=== PATIENT | female | born 1990 | race Caucasian/White ===

== ENCOUNTER → 2017-01-13 | Outpatient (REF) | LOC: M LAB 10:23 | PROVIDERS: ATTEND Nurse Practitioner Adult Health | DX: Z02.89 Encounter for other administrative examinations (principal) ==

== ENCOUNTER → 2017-04-10 | Outpatient (CLI) | payer OTHER ==
[~2017-04-10] MED LIST: CYCL10TA PO; DOXY-278 PO; ISOVUE-370 76% 100ML VIAL (Q9967) As Ordered ONE; MAXA10TA14 PO; PROP60TA14 PO
--- NOTE | 2017-04-10 13:20 | REP ---
HYSTEROSALPINGOGRAM: Patient's cervix was catheterized by the referring clinician. Contrast was injected. I provided fluoroscopy and obtained spot radiographs. Uterine cavity demonstrates no definite filling defect. There is free passage of contrast through both fallopian tubes which do not appear to be dilated. There is free intraperitoneal spillage bilaterally indicating bilateral fallopian tube patency. IMPRESSION: Bilateral fallopian tube patency. 12 seconds fluoroscopy time utilized. Signed by Max Christy MD 04/10/2017 01:32 P
== END ==
LOC: M RADPRO 11:29
PROVIDERS: ATTEND Student in an Organized Health Care Education/Training Program
DX: N97.9 Female infertility, unspecified (principal)
CPT/HCPCS: 58340; 74740; Q9967

== ENCOUNTER 2017-04-11 02:00 | Emergency (ER) | payer OTHER ==
[~2017-04-11] VITALS: Ht 160 cm; Wt 77.2 kg
[2017-04-11] MEDS ORDERED: MAXA10TA14 PO (02:13)
[2017-04-11] MEDS ORDERED: PROP60TA14 PO (02:13)
[2017-04-11] MEDS ORDERED: NS 1,000 ML IV ONE (04:15)
[2017-04-11] MEDS ORDERED: KETOROLAC 30 MG/ML VIAL (J1885) IV ONE (04:15)
[2017-04-11] MEDS ORDERED: MORPHINE 10 MG/ML 1ML VIAL IV ONE (04:15)
--- NOTE | 2017-04-11 04:40 | REPUSA ---
CLINICAL HISTORY: Abdominal pain. TECHNIQUE: Multiple axial, sagittal and coronal CT images were obtained through the abdomen and pelvi s without administration of oral or IV contrast material. COMMENTS: The liver is of uniform attenuation without mass or defect. There is no intra or extrahepatic biliary ductal dilatation. The spleen is normal. The gallbladder is within normal limits. The pancreas is of normal contour and attenuation characteristics. There is no evidence of adrenal mass. The kidneys are normal in size, shape and configuration. No renal or ureteral calculi are identified. There is no hydroureter or hydronephrosis. There is no evidence for appendicitis. There is no bowel wall thickening. No evidence for small or la rge bowel obstruction. There is no evidence of abdominal ascites or lymphadenopathy. Mild large bowel fecal stasis. There is no evidence of intrinsic or extrinsic bladder mass. Mildly thickened bladder. There is no pe lvic ascites or lymphadenopathy. Contrast in the vagina. Images of the lung bases show no evidence of pleural or parenchymal mass. There are no pleural effusi ons. The bony structures are free of lytic or blastic lesions. IMPRESSION: Contrast in the vagina. Mildly thickened bladder. Underdistention, spasm versus mild cystitis. Thank you for your kind referral of this patient.
[2017-04-11 06:29] VITALS: BP 129/78
[2017-04-12] MEDS ORDERED: CYCL10TA PO (03:21)
[2017-04-12] MEDS ORDERED: DOXY-278 PO (03:21)
== END 2017-04-11 06:31 | disposition home or self-care (01) ==
LOC: M ED 02:00
DX: G89.18 Other acute postprocedural pain (principal); Z79.899 Other long term (current) drug therapy; Z88.0 Allergy status to penicillin
CPT/HCPCS: 36415; 74176; 81001; 87086; 96361; 96374; 96375; 99283; J1885

== ENCOUNTER 2017-04-12 03:06 | Emergency (ER) | payer OTHER ==
[~2017-04-12 03:06] MED LIST changes: -CYCL10TA PO; -DOXY-278 PO; -ISOVUE-370 76% 100ML VIAL (Q9967) As Ordered ONE
[2017-04-12] MEDS ORDERED: DOXY-278 PO (03:21)
[2017-04-12] MEDS ORDERED: CYCL10TA PO (03:21)
[2017-04-12] MEDS ORDERED: KETOROLAC 30 MG/ML VIAL (J1885) IV ONE (03:45)
[2017-04-12] MEDS ORDERED: NS 1,000 ML IV ONE (03:45)
[2017-04-12 04:23] LABS: BASO # 0.1 K/mm3 (0.0-0.2); BASO % 0.7 % (0.0-1.0); EOS # 0.3 K/mm3 (0.0-0.50); EOS % 3.8 % (0.0-3.0); LARGE UNSTAINED CELL # 0.1 K/mm3 (0.0-0.4); LARGE UNSTAINED CELL % 1.5 % (0.0-4.0); LYMPH # 3.7 K/mm3 (1.5-6.5); MEAN CORPUSCULAR HEMOGLOBIN 30.1 pg (27.0-33.0); MEAN CORPUSCULAR HGB CONC 34.4 g/dl (32.0-36.5); MEAN CORPUSCULAR VOLUME 87.6 fl (80.0-96.0); MONO # 0.5 K/mm3 (0.0-0.8); MONO % 5.3 % (0.0-5.0); NEUTROPHILS # 4.5 K/mm3 (1.8-7.7); NEUTROPHILS % 49.8 % (36.0-66.0); PLATELET COUNT, AUTOMATED 473 k/mm3 (150-450); RED CELL DISTRIBUTION WIDTH 12.5 % (11.5-14.5)
[2017-04-12] MEDS ORDERED: METAL LOCK LOOP XX ONE (04:23)
[2017-04-12 04:42] LABS: ALBUMIN 3.8 GM/DL (3.2-5.2); ALBUMIN/GLOBULIN RATIO 1.09 (1.00-1.93); ALKALINE PHOSPHATASE 84 U/L (45-117); ALT/SGPT 37 U/L (12-78); AMYLASE 50 U/L (25-115); ANION GAP 7 MEQ/L (8-16); AST/SGOT 25 U/L (15-37); BILIRUBIN,DIRECT < 0.1 MG/DL (0.0-0.2); BILIRUBIN,TOTAL 0.3 MG/DL (0.2-1.0); BLOOD UREA NITROGEN 11 MG/DL (7-18); CALCIUM LEVEL 8.1 MG/DL (8.5-10.1); CARBON DIOXIDE LEVEL 26 MEQ/L (21-32); CHLORIDE LEVEL 111 MEQ/L (98-107); CREATININE FOR GFR 0.55 MG/DL (0.55-1.02); GLOMERULAR FILTRATION RATE > 60.0 (>60); GLUCOSE, FASTING 99 MG/DL (70-105); POTASSIUM SERUM 4.3 MEQ/L (3.5-5.1); SODIUM LEVEL 144 MEQ/L (136-145); TOTAL PROTEIN 7.3 GM/DL (6.4-8.2)
[2017-04-12] MEDS ORDERED: ISOVUE-370 76% 100ML VIAL (Q9967) As Ordered ONE (04:58)
--- NOTE | 2017-04-12 06:00 | REPUSA ---
CLINICAL HISTORY: Abdominal pain. TECHNIQUE: Multiple axial, sagittal and coronal CT images were obtained through the abdomen and pelvi s after administration of intravenous contrast material. COMMENTS: Comparison to the prior exam on 04/11/2017. Decreased amount of contrast in the vagina. Mildly thickened bladder. The liver is of uniform attenuation without mass or defect. There is no intra or extrahepatic biliary ductal dilatation. The spleen is normal. The gallbladder is within normal limits. The pancreas is of normal contour and attenuation characteristics. There is no evidence of adrenal mass. Both kidneys demonstrate prompt and equal nephrograms. The kidneys are normal in size, shape and conf iguration. There is no evidence of renal or ureteral mass. No renal or ureteral calculi are identifie d. There is no hydroureter or hydronephrosis. No evidence for appendicitis. There is no bowel wall thickening. No evidence for small or large elton l obstruction. There is no evidence of abdominal ascites or lymphadenopathy. There is no evidence of intrinsic or extrinsic bladder mass. There is no pelvic ascites or lymphadeno rimma. Images of the lung bases show no evidence of pleural or parenchymal mass. There are no pleural effusi ons. The bony structures are free of lytic or blastic lesions. IMPRESSION: Mildly thickened bladder. Underdistention versus mild cystitis. Decreased amount of contrast (from recent hysterosalpingogram) in the vagina. No other active pathology. Thank you for your kind referral of this patient.
[2017-04-12 06:28] VITALS: BP 137/90
--- NOTE | 2017-04-12 10:37 | ED PDOC ---
Post-Departure Follow-Up radiology rpeort faxed to [facility] Carmen Singer MD Apr 12, 2017 10:37
== END 2017-04-12 06:30 | disposition home or self-care (01) ==
LOC: M ED 03:06
DX: G89.18 Other acute postprocedural pain (principal); Z79.899 Other long term (current) drug therapy; Z88.0 Allergy status to penicillin
CPT/HCPCS: 74177; 80048; 80076; 81001; 82150; 83605; 83690; 85025; 87086; 96361; 96374; 99283; J1885; Q9967

== ENCOUNTER → 2018-07-02 | Outpatient (CLI) | payer OTHER ==
[2018-07-02 13:04] LABS: ALBUMIN/GLOBULIN RATIO 1.25 (1.00-1.93); ALKALINE PHOSPHATASE 81 U/L (45-117); ALT/SGPT 68 U/L (12-78); AST/SGOT 31 U/L (7-37); BILIRUBIN,DIRECT < 0.1 MG/DL (0.0-0.2); BILIRUBIN,TOTAL 0.4 MG/DL (0.2-1.0); C REACTIVE PROTEIN QUANTITATIV 0.78 MG/DL (0.00-0.30); TOTAL PROTEIN 7.2 GM/DL (6.4-8.2)
[2018-07-02 13:13] LABS: ERYTHROCYTE SEDIMENTATION RATE 14 mm/hr (0-20)
[2018-07-02 14:20] LABS: CONTROL LINE HPYORI INT CTR LINE PRESENT; H PYLORI QUALITATIVE IgG NEGATIVE (NEGATIVE)
[2018-07-03 10:00] LABS: HEPATITIS B SURFACE ANTIBODY POSITIVE (POSITIVE)
[2018-07-03 10:10] LABS: HEPATITIS B SURFACE ANTIGEN NEGATIVE (NEGATIVE)
[2018-07-07 08:06] LABS: TISSUE TRANSGLUTAMINASE IgA <2 U/mL (0-3)
[2018-07-07 08:06] LABS: IGASUB3 37.2 mg/dL (13.4-97.9); IgA SERUM (part of Subclasses) 186 mg/dL (87-352)
[2018-07-08 09:42] LABS: CROHN1 SEE SEPARATE REPORT; IBDSER1 SEE SEPARATE REPORT
== END ==
LOC: M LAB 11:34
DX: R10.31 Right lower quadrant pain (principal)
CPT/HCPCS: 80076